=== PATIENT | female | born 1990 | race Caucasian/White ===

== ENCOUNTER 2018-10-04 12:24 | Emergency (ER) | payer OTHER, SELFPAY ==
[2018-10-04 12:54] VITALS: BP 130/77; PULSE 76; RESP 18; TEMP 36.8; O2SAT 99
[2018-10-04 13:07] LABS: Bacteria Urine None Seen; WBC Urine None Seen (0-5/HPF)
--- NOTE | 2018-10-04 13:16 | PC.NURSE ---
pt states she recently found out her spouse had cheated. pt states she had been texting him this morning around 0900. pt said he didn't answer, i thought if he doesn't care why should i pt says she then decided to text him accounts and passwords he would need (because she handles all the bills) pt then texted mom and sister vishal. pt states she was thinking about driving [place] while driving to her job and then a counselor called her and said she had and opening. pt drove to see her. Counselor states that the had spoken with her because he was concerned. [place].
[2018-10-04 13:21] LABS: Urine Amphetamines Negative (Negative); Urine Barbiturates Negative (Negative); Urine Benzodiazepines Negative (Negative); Urine Cocaine Negative (Negative); Urine MDMA Negative (Negative); Urine Methadone Negative (Negative); Urine Methamphetamines Negative (Negative); Urine Morphine/Opi cutoff 2000 Negative (Negative); Urine Oxycodone Negative (Negative); Urine Phencyclidine Negative (Negative); Urine Tetrahydrocannabinol Positive (Negative); Urine Tricyclic Antidepressant Negative (Negative)
[2018-10-04 13:24] LABS: Amorphous Sediment Urine 1+; Culture Indicated Urine Cult Not Indicated; RBC Urine 0-1/HPF (0-5/HPF)
[2018-10-04 13:33] LABS: Add Manual Diff / Slide Review NO; Basophils Absolute Auto 0 /uL (0-100); Basophils Percent Auto 0.3 % (0-2); Eosinophils Absolute Auto 100 /uL (0-450); Eosinophils Percent Auto 0.8 % (2-4); Hematocrit 36.6 % (36-46); Hemoglobin 12.3 g/dL (12.0-16.0); Lymphocytes Absolute Auto 2700 /uL (1100-4500); Lymphocytes Percent Auto 29.8 % (25-40); Mean Corpuscular HGB Conc 33.6 % (30-36); Mean Corpuscular Hemoglobin 27.1 PG (26-34); Mean Corpuscular Volume 80.6 fL (80-100); Monocytes Absolute Auto 500 /uL (0-900); Monocytes Percent Auto 5.8 % (3-14); Neutrophils Absolute Auto 5800 /uL (1500-7000); Neutrophils Percent Auto 63.3 % (50-75); Platelet Count 405 X10^3/uL (150-400); Red Blood Cell Count 4.54 X10^6/uL (4.0-5.2); Red Cell Distribution Width 14.1 % (11.6-14.8); White Blood Cell Count 9.2 X10^3/uL (4.5-11.0)
[2018-10-04 13:46] LABS: Acetaminophen < 10 ug/mL (10-30); Salicylate < 1.0 mg/dL (<20)
[2018-10-04 13:47] LABS: Alanine Aminotransferase 40 IU/L (9-52); Albumin 4.8 g/dL (3.5-5.0); Albumin Globulin Ratio 1.4 (1.0-2.8); Alkaline Phosphatase 123 U/L (38-126); Aspartate Aminotransferase 33 IU/L (14-36); Bilirubin Total 0.9 mg/dL (0.2-1.3); Blood Urea Nitrogen 9 mg/dL (7-17); Calcium 9.6 mg/dL (8.4-10.2); Carbon Dioxide 26 mmol/L (22-32); Chloride 102 mmol/L (98-107); Estimated Glomerular Filt Rate > 60.0 mL/min (>60); Ethanol (ETOH) < 10 mg/dL; Globulin 3.5 g/dL (1.7-4.1); Glucose 97 mg/dL (70-100); HEMOLYSIS < 15 (0-50); Potassium 3.5 mmol/L (3.4-5.1); Sodium 140 mmol/L (137-145); Total Protein 8.3 g/dL (6.3-8.2)
--- NOTE | 2018-10-04 14:05 | ED_ITS ---
HPI - Psych <DEVANG Jo - Last Filed: 10/04/18 17:33> General Chief Complaint: Psychiatric Symptoms Stated Complaint: suicidal ideation with plan Time Seen by Provider: 10/04/18 12:32 Source: patient Mode of arrival: ambulatory Limitations: no limitations History of Present Illness HPI Narrative: The patient is a 28-year-old female with history of PTSD who presents with a counselor for chief complaint of depression with suicidal ideation. She states that she had a plan to [place] [address]. She states that she was on her way [place] when she received a call from a counselor. The patient states that she has had significant increased stressors at home, including her cheating on her. She states that she has had suicide attempts in the past for she attempted to jump into the ocean. She states a long history of depression, denies any state drug or alcohol use. She does admit to smoking marijuana. She denies diagnoses such as bipolar schizophrenia. She does not use any illicit drugs. She texted her mother and sister juliana today. She sent her information for [employer] accounts, so he could walk in. Per the counselor, she texted her a suicide letter. She presents voluntarily. She states that she was seen at [facility] 2 weeks ago for similar issues and was in the emergency department for 8 hours. She endorses current feelings of hopelessness and worthlessness. Related Data Home Medications Medication Instructions Recorded Confirmed atorvastatin 1 tab PO DAILY 10/04/18 10/04/18 buspirone 1 dose PO DIRECTED 10/04/18 10/04/18 duloxetine 1 dose PO DAILY 10/04/18 10/04/18 Allergies Allergy/AdvReac Type Severity Reaction Status Date / Time Penicillins Allergy Verified 10/04/18 13:22 Review of Systems <DEVANG Jo - Last Filed: 10/04/18 17:33> Review of Systems GENERAL: Denies chills, fatigue, malaise, fever, sweats. HEENT: Denies sinus pain, ear pain, sore throat, difficulty swallowing, dizziness. RESPIRATORY: Denies dyspnea, cough, wheezing, hemoptysis, sputum. CARDIOVASCULAR: Denies chest pain, palpitations, orthopnea, edema, GASTROINTESTINAL: Denies nausea, vomiting, abdominal pain, diarrhea, constipation, melena. : Denies dysuria, frequency, incontinence, hematuria, urinary retention. MUSCULOSKELETAL: denies weakness, joint pain, or bony pain SKIN: Denies rash, skin lesions, or other NEUROLOGIC: Denies weakness, headache, numbness, change in speech, confusion, seizures, incoordination. PSYCHIATRIC: See HPI 12 point review of systems is negative except for those stated above PFSH <DEVANG Jo - Last Filed: 10/04/18 17:33> Social History Smoking Status: Never smoker Social History Smoking Status: Never smoker Exam <DEVANG Jo - Last Filed: 10/04/18 17:33> Narrative Exam Narrative: GENERAL: This is a well-nourished, well-developed patient, in mild distress. HEAD: Atraumatic. Normocephalic. No temporal or scalp tenderness. EYES: Pupils equal round and reactive. Extraocular motions intact. No scleral icterus. No injection or drainage. ENT: Nose without bleeding, purulent drainage or septal hematoma. Throat without erythema, tonsillar hypertrophy or exudate. Uvula midline. Airway patent. NECK: Trachea midline. No JVD or lymphadenopathy. Supple, nontender, no meningeal signs. CARDIOVASCULAR: Regular rate and rhythm without murmurs, gallops, or rubs. RESPIRATORY: Clear to auscultation. Breath sounds equal bilaterally. No wheezes, rales, or rhonchi. GASTROINTESTINAL: Abdomen soft, non-tender, nondistended. No hepato- splenomegaly, or palpable masses. No guarding. EXTREMITIES: No clubbing, cyanosis, or edema. No joint tenderness, effusion, or edema noted. BACK: Nontender without deformity or crepitance. No flank tenderness. NEURO: AOx3. SKIN: No rash or erythema on visible skin Psych: Speaking. Somewhat withdrawn. Initial Vital Signs Initial Vital Signs: Vital Signs Temperature 98.3 F 10/04/18 12:54 Pulse Rate 76 10/04/18 12:54 Respiratory Rate 18 10/04/18 12:54 Blood Pressure 130/77 10/04/18 12:54 Pulse Oximetry 99 10/04/18 12:54 <Michela Benton DO - Last Filed: 10/04/18 19:19> Initial Vital Signs Initial Vital Signs: Vital Signs Temperature 98.3 F 10/04/18 12:54 Pulse Rate 76 10/04/18 12:54 Respiratory Rate 18 10/04/18 12:54 Blood Pressure 130/77 10/04/18 12:54 Pulse Oximetry 99 10/04/18 12:54 Course <DEVANG Jo - Last Filed: 10/04/18 17:33> Orders Ordered: ED Orders 10/04/18 12:50 Urine Drug Screen, Rapid Stat Urine Microscopic Stat 10/04/18 13:25 Acetaminophen Stat Complete Blood Count AUTO DIFF Stat Comprehensive Metabolic Panel Stat Ethanol (ETOH) Stat Salicylate Stat Thyroid Stimulating Hormone Stat Discontinued Medications Lorazepam (Ativan) 1 mg PO NOW ONE Stop: 10/04/18 16:13 Last Admin: 10/04/18 16:23 Dose: 1 mg Vital Signs - 8 hr 10/04/18 12:54 10/04/18 15:06 10/04/18 17:16 Temperature 98.3 F 98.6 F Pulse Rate 76 78 69 Respiratory Rate 18 16 16 Blood Pressure 130/77 Blood Pressure [Left Arm] 140/86 134/81 Pulse Oximetry 99 98 99 <Michela Benton DO - Last Filed: 10/04/18 19:19> Orders Ordered: ED Orders 10/04/18 12:50 Urine Drug Screen, Rapid Stat Urine Microscopic Stat 10/04/18 13:25 Acetaminophen Stat Complete Blood Count AUTO DIFF Stat Comprehensive Metabolic Panel Stat Ethanol (ETOH) Stat Salicylate Stat Thyroid Stimulating Hormone Stat Discontinued Medications Lorazepam (Ativan) 1 mg PO NOW ONE Stop: 10/04/18 16:13 Last Admin: 10/04/18 16:23 Dose: 1 mg Vital Signs - 8 hr 10/04/18 12:54 10/04/18 15:06 10/04/18 17:16 Temperature 98.3 F 98.6 F Pulse Rate 76 78 69 Respiratory Rate 18 16 16 Blood Pressure 130/77 Blood Pressure [Left Arm] 140/86 134/81 Pulse Oximetry 99 98 99 MDM - Psych <DEVANG Jo - Last Filed: 10/04/18 17:33> Lab Data Result diagrams: 10/04/18 13:25 10/04/18 13:25 Lab Results 10/04/18 10/04/18 10/04/18 Range/Units 12:50 12:50 13:25 WBC (4.5-11.0) X10^3/uL RBC (4.0-5.2) X10^6/uL Hgb (12.0-16.0) g/dL Hct (36-46) % MCV (80-100) fL MCH (26-34) PG MCHC (30-36) % RDW (11.6-14.8) % Plt Count (150-400) X10^3/uL Neut % (Auto) (50-75) % Lymph % (Auto) (25-40) % [place] % (Auto) (3-14) % Eos % (Auto) (2-4) % Baso % (Auto) (0-2) % Neut # (Auto) (4676-5809) /uL Lymph # (Auto) (5439-6445) /uL [place] # (Auto) (0-900) /uL Eos # (Auto) (0-450) /uL Baso # (Auto) (0-100) /uL Sodium (137-145) mmol/L Potassium (3.4-5.1) mmol/L Chloride (98-107) mmol/L Carbon Dioxide (22-32) mmol/L BUN (7-17) mg/dL Creatinine (0.52-1.04) mg/dL Estimated GFR (>60) mL/min BUN/Creatinine Ratio (6-22) Glucose (70-100) mg/dL Calcium (8.4-10.2) mg/dL Total Bilirubin (0.2-1.3) mg/dL AST (14-36) IU/L ALT (9-52) IU/L Alkaline Phosphatase (38-126) U/L Total Protein (6.3-8.2) g/dL Albumin (3.5-5.0) g/dL Globulin (1.7-4.1) g/dL Albumin/Globulin Ratio (1.0-2.8) TSH (0.47-4.68) uIU/mL Urine RBC 0-1/hpf (0-5/HPF) Urine WBC None seen (0-5/HPF) Amorphous Sediment 1+ Urine Bacteria None seen (None) Ur Culture Indicated? Cult not indicated Salicylates < 1.0 (<20) mg/dL Urine Opiates Screen Negative (Negative) Ur Oxycodone Screen Negative (Negative) Urine Methadone Screen Negative (Negative) Acetaminophen < 10 L (10-30) ug/mL Ur Barbiturates Screen Negative (Negative) U Tricyclic Antidepress Negative (Negative) Ur Phencyclidine Scrn Negative (Negative) Ur Amphetamines Screen Negative (Negative) U Methamphetamines Scrn Negative (Negative) Ur MDMA Scrn (Ecstasy) Negative (Negative) U Benzodiazepines Scrn Negative (Negative) Urine Cocaine Screen Negative (Negative) U Marijuana (THC) Screen Positive H (Negative) Ethyl Alcohol mg/dL 10/04/18 10/04/18 10/04/18 Range/Units 13:25 13:25 13:25 WBC 9.2 (4.5-11.0) X10^3/uL RBC 4.54 (4.0-5.2) X10^6/uL Hgb 12.3 (12.0-16.0) g/dL Hct 36.6 (36-46) % MCV 80.6 (80-100) fL MCH 27.1 (26-34) PG MCHC 33.6 (30-36) % RDW 14.1 (11.6-14.8) % Plt Count 405 H (150-400) X10^3/uL Neut % (Auto) 63.3 (50-75) % Lymph % (Auto) 29.8 (25-40) % [place] % (Auto) 5.8 (3-14) % Eos % (Auto) 0.8 L (2-4) % Baso % (Auto) 0.3 (0-2) % Neut # (Auto) 5800 (2852-4582) /uL Lymph # (Auto) 2700 (9773-8549) /uL [place] # (Auto) 500 (0-900) /uL Eos # (Auto) 100 (0-450) /uL Baso # (Auto) 0 (0-100) /uL Sodium 140 (137-145) mmol/L Potassium 3.5 (3.4-5.1) mmol/L Chloride 102 (98-107) mmol/L Carbon Dioxide 26 (22-32) mmol/L BUN 9 (7-17) mg/dL Creatinine 0.50 L (0.52-1.04) mg/dL Estimated GFR > 60.0 (>60) mL/min BUN/Creatinine Ratio 18.0 (6-22) Glucose 97 (70-100) mg/dL Calcium 9.6 (8.4-10.2) mg/dL Total Bilirubin 0.9 (0.2-1.3) mg/dL AST 33 (14-36) IU/L ALT 40 (9-52) IU/L Alkaline Phosphatase 123 (38-126) U/L Total Protein 8.3 H (6.3-8.2) g/dL Albumin 4.8 (3.5-5.0) g/dL Globulin 3.5 (1.7-4.1) g/dL Albumin/Globulin Ratio 1.4 (1.0-2.8) TSH 0.44 L (0.47-4.68) uIU/mL Urine RBC (0-5/HPF) Urine WBC (0-5/HPF) Amorphous Sediment Urine Bacteria (None) Ur Culture Indicated? Salicylates (<20) mg/dL Urine Opiates Screen (Negative) Ur Oxycodone Screen (Negative) Urine Methadone Screen (Negative) Acetaminophen (10-30) ug/mL Ur Barbiturates Screen (Negative) U Tricyclic Antidepress (Negative) Ur Phencyclidine Scrn (Negative) Ur Amphetamines Screen (Negative) U Methamphetamines Scrn (Negative) Ur MDMA Scrn (Ecstasy) (Negative) U Benzodiazepines Scrn (Negative) Urine Cocaine Screen (Negative) U Marijuana (THC) Screen (Negative) Ethyl Alcohol < 10 mg/dL Point of Care Testing Test Results Negative Urine Dip Bedside Urine Glucose Negative Bedside Urine Bilirubin - Negative Bedside Urine Ketone +/- 5 Urine Specific [place] 1.010 Bedside Urine pH 7.0 Bedside Urine Protein - Negative Bedside Urine Urobilinogen - Negative Bedside Urine Nitrite - Negative Bedside Urine Leukocytes - Negative Esterase MDM Narrative Medical decision making narrative: The patient is a 28-year-old female who presents with a chief complaint of suicidal ideations with a plan to drive [place] [address]. She presents with her counselor. She feels helpless, worthless, and has history of suicide attempts. She has a high risk patient, seeking voluntary care. Social work was consulted in the emergency department, the patient was found to have a bed at [facility]. The patient remains a throughout her stay in the emergency department, placed on suicide precautions. I did give her 1 mg of Ativan for anxiety. The patient was accepted by [facility], which was arranged by care management. The patient was transferred to EMS at 5:30 p.m.. She stated understanding of her transfer, and is happy that she is getting help. <Michela Benton, DO - Last Filed: 10/04/18 19:19> Lab Data Lab Results 10/04/18 10/04/18 10/04/18 Range/Units 12:50 12:50 13:25 WBC (4.5-11.0) X10^3/uL RBC (4.0-5.2) X10^6/uL Hgb (12.0-16.0) g/dL Hct (36-46) % MCV (80-100) fL MCH (26-34) PG MCHC (30-36) % RDW (11.6-14.8) % Plt Count (150-400) X10^3/uL Neut % (Auto) (50-75) % Lymph % (Auto) (25-40) % [place] % (Auto) (3-14) % Eos % (Auto) (2-4) % Baso % (Auto) (0-2) % Neut # (Auto) (8922-4976) /uL Lymph # (Auto) (7932-6882) /uL [place] # (Auto) (0-900) /uL Eos # (Auto) (0-450) /uL Baso # (Auto) (0-100) /uL Sodium (137-145) mmol/L Potassium (3.4-5.1) mmol/L Chloride (98-107) mmol/L Carbon Dioxide (22-32) mmol/L BUN (7-17) mg/dL Creatinine (0.52-1.04) mg/dL Estimated GFR (>60) mL/min BUN/Creatinine Ratio (6-22) Glucose (70-100) mg/dL Calcium (8.4-10.2) mg/dL Total Bilirubin (0.2-1.3) mg/dL AST (14-36) IU/L ALT (9-52) IU/L Alkaline Phosphatase (38-126) U/L Total Protein (6.3-8.2) g/dL Albumin (3.5-5.0) g/dL Globulin (1.7-4.1) g/dL Albumin/Globulin Ratio (1.0-2.8) TSH (0.47-4.68) uIU/mL Urine RBC 0-1/hpf (0-5/HPF) Urine WBC None seen (0-5/HPF) Amorphous Sediment 1+ Urine Bacteria None seen (None) Ur Culture Indicated? Cult not indicated Salicylates < 1.0 (<20) mg/dL Urine Opiates Screen Negative (Negative) Ur Oxycodone Screen Negative (Negative) Urine Methadone Screen Negative (Negative) Acetaminophen < 10 L (10-30) ug/mL Ur Barbiturates Screen Negative (Negative) U Tricyclic Antidepress Negative (Negative) Ur Phencyclidine Scrn Negative (Negative) Ur Amphetamines Screen Negative (Negative) U Methamphetamines Scrn Negative (Negative) Ur MDMA Scrn (Ecstasy) Negative (Negative) U Benzodiazepines Scrn Negative (Negative) Urine Cocaine Screen Negative (Negative) U Marijuana (THC) Screen Positive H (Negative) Ethyl Alcohol mg/dL 10/04/18 10/04/18 10/04/18 Range/Units 13:25 13:25 13:25 WBC 9.2 (4.5-11.0) X10^3/uL RBC 4.54 (4.0-5.2) X10^6/uL Hgb 12.3 (12.0-16.0) g/dL Hct 36.6 (36-46) % MCV 80.6 (80-100) fL MCH 27.1 (26-34) PG MCHC 33.6 (30-36) % RDW 14.1 (11.6-14.8) % Plt Count 405 H (150-400) X10^3/uL Neut % (Auto) 63.3 (50-75) % Lymph % (Auto) 29.8 (25-40) % [place] % (Auto) 5.8 (3-14) % Eos % (Auto) 0.8 L (2-4) % Baso % (Auto) 0.3 (0-2) % Neut # (Auto) 5800 (7336-7408) /uL Lymph # (Auto) 2700 (6193-6221) /uL [place] # (Auto) 500 (0-900) /uL Eos # (Auto) 100 (0-450) /uL Baso # (Auto) 0 (0-100) /uL Sodium 140 (137-145) mmol/L Potassium 3.5 (3.4-5.1) mmol/L Chloride 102 (98-107) mmol/L Carbon Dioxide 26 (22-32) mmol/L BUN 9 (7-17) mg/dL Creatinine 0.50 L (0.52-1.04) mg/dL Estimated GFR > 60.0 (>60) mL/min BUN/Creatinine Ratio 18.0 (6-22) Glucose 97 (70-100) mg/dL Calcium 9.6 (8.4-10.2) mg/dL Total Bilirubin 0.9 (0.2-1.3) mg/dL AST 33 (14-36) IU/L ALT 40 (9-52) IU/L Alkaline Phosphatase 123 (38-126) U/L Total Protein 8.3 H (6.3-8.2) g/dL Albumin 4.8 (3.5-5.0) g/dL Globulin 3.5 (1.7-4.1) g/dL Albumin/Globulin Ratio 1.4 (1.0-2.8) TSH 0.44 L (0.47-4.68) uIU/mL Urine RBC (0-5/HPF) Urine WBC (0-5/HPF) Amorphous Sediment Urine Bacteria (None) Ur Culture Indicated? Salicylates (<20) mg/dL Urine Opiates Screen (Negative) Ur Oxycodone Screen (Negative) Urine Methadone Screen (Negative) Acetaminophen (10-30) ug/mL Ur Barbiturates Screen (Negative) U Tricyclic Antidepress (Negative) Ur Phencyclidine Scrn (Negative) Ur Amphetamines Screen (Negative) U Methamphetamines Scrn (Negative) Ur MDMA Scrn (Ecstasy) (Negative) U Benzodiazepines Scrn (Negative) Urine Cocaine Screen (Negative) U Marijuana (THC) Screen (Negative) Ethyl Alcohol < 10 mg/dL Point of Care Testing Test Results Negative Urine Dip Bedside Urine Glucose Negative Bedside Urine Bilirubin - Negative Bedside Urine Ketone +/- 5 Urine Specific [place] 1.010 Bedside Urine pH 7.0 Bedside Urine Protein - Negative Bedside Urine Urobilinogen - Negative Bedside Urine Nitrite - Negative Bedside Urine Leukocytes - Negative Esterase Discharge Plan Departure Patient Disposition: Xfer Psychiatric Hosp Clinical Impression: Suicidal ideation Discharge Date/Time: 10/04/18 17:43 Interventions: ED Discharge Assessment Last Done: 10/04/18 17:45 <Michela Benton DO - Last Filed: 10/04/18 19:19> Cosign ED Attending Cosignature Attestation: I was immediately available in the department for consultation, case discussed. Patient evaluated by social work as well and plan for voluntary placement. Patient was accepted at [facility]. This documentation has been reviewed and I agree with assessment and plan. Supervised by Michela Benton DO
[2018-10-04 14:22] LABS: Thyroid Stimulating Hormone 0.44 uIU/mL (0.47-4.68)
[2018-10-04 15:06] VITALS: BP 140/86; PULSE 78; RESP 16; O2SAT 98
--- NOTE | 2018-10-04 16:15 | PC.NURSE ---
pt is very tearful after talking to her . emotional supports given to pt..
[2018-10-04] MEDS: LORazepam 0.5 MG TABLET 1 MG PO (16:23)
[2018-10-04 17:16] VITALS: BP 134/81; PULSE 69; RESP 16; TEMP 37; O2SAT 99
== END 2018-10-04 17:43 ==
PROVIDERS: Emergency Provider Nurse Practitioner Family
DX: R45.851 Suicidal ideations (principal)
CPT/HCPCS: 36415; 80053; 80305; 80320; 80329; 81003; 81015; 81025; 84443; 85025; 99285; G0480